=== PATIENT | female | born 1975 | race Caucasian/White ===

== ENCOUNTER 2021-07-23 19:45 | Emergency (ER) | payer OTHER, SELFPAY ==
[2021-07-23 19:46] VITALS: BP 119/75; PULSE 64; RESP 18; TEMP 36.3; O2SAT 99; BMI 20.7
[2021-07-23] MEDS: Diphth,Pertuss(Acell),Tet Vac 0.5 ML Vial IM (21:04)
--- NOTE | 2021-07-23 21:13 | EX.ED.UPPERE ---
HPI History of Present Illness Chief Complaint: Laceration Informant: patient Narrative Narrative: [id number] presents injury at work 7 PM. 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 Pushing it when it cut through the gloves on her right palm. Pain would radiate to her index finger. No paresthesias. No anticoagulation medicine. Tetanus unknown. Tetanus Immunization: Unknown PFSH PFSH Medical History Anxiety Hypothyroidism Migraines Smoker Home Medications ergocalciferol (vitamin D2) 1,250 mcg PO DAILY 07/23/21 [History Last Taken Unknown] fluoxetine 10 mg PO DAILY 07/23/21 [History Last Taken Unknown] levothyroxine 88 mcg PO DAILY 07/23/21 [History Last Taken Unknown] Allergy/AdvReac Type Severity Reaction Status Date / Time No Known Allergies Allergy Verified 07/23/21 19:49 Surgical History Hx of tonsillectomy Social History Smoking Status: Current every day smoker tobacco type: cigarettes ROS ROS ED Constitutional Constitutional ED: Denies chills, fever(s) or sweats Eyes Eyes: Denies change in vision ENT ENT ED: Denies dysphagia or sore throat Cardiovascular Cardiovascular: Denies chest pain, leg edema, palpitations or racing heartbeat Respiratory/Chest Respiratory/Chest: Denies cough, dyspnea or dyspnea on exertion Gastrointestinal Gastrointestinal: Denies abdominal pain, diarrhea, nausea or vomiting Genitourinary Genitourinary ED: Denies dysuria, hematuria or urinary frequency Musculoskeletal Musculoskeletal: Denies back pain, extremity pain or neck pain Integumentary Reports other Details: Right hand laceration ; Denies rash or wounds Neurologic Neurologic: Denies headache(s), paresthesias or weakness EXAM Physical Exam Const Vital Signs: 07/23/21 19:46 Temperature 97.4 F L Temperature Source Temporal Pulse Rate 64 Respiratory Rate 18 Blood Pressure 119/75 Blood Pressure Mean 89 Pulse Ox 99 Oxygen Delivery Method Room Air Positive well nourished and well developed General Appearance ED: well developed and NAD HEENT Reports moist mucous membranes normocephalic and atraumatic Eyes PERRL, EOMs intact bilaterally and conjunctivae normal General Eye ED: Yes normal appearance of both eyes Neck no lymphadenopathy and supple General: Negative for tenderness Chest Wall Chest: Negative for tenderness Resp normal respiratory effort and normal air movement Effort and Inspection: symmetric chest movement; Negative for respiratory distress Cardio regular rate, regular rhythm and no murmurs Peripheral Pulses: pulses 2+ throughout GI normal to inspection, nondistended, normoactive bowel sounds and non-tender Palpation: Negative for guarding or rebound tenderness present Back/Spine no CVA tenderness and no thoracic nor lumbar tenderness Extremity normal to inspection General Extremety ED: Negative for edema or tenderness General Extremity: Negative for edema Neuro oriented x3 and no sensory deficits noted Sensorium / Orientation: awake and alert Skin no wounds Skin Narrative: Right hand palmar aspect, superficial laceration to the palm distal second metacarpal very minimal subcu exposure. Full range of motion of the index finger without paresthesias. No active bleeding. MDM MDM MDM Narrative Medical decision making narrative: Superficial laceration tetanus updated. Skin was cleansed by nursing. 3 layers of Dermabond was placed for closure with good approximation. Wound care was discussed with the patient. She did not want any work restrictions. She is given follow-up with occupational health. All questions were answered. Discharge Plan Triage Chief Complaint: Laceration ED Provider: Ajay Moreno Dx/Rx/DC Orders Clinical Impression: Laceration of hand, right, Tetanus toxoid vaccination administered at current visit Instructions: ED Laceration, Extremity: Skin Glue Prescriptions: No Action levothyroxine 88 mcg Tablet 88 mcg PO DAILY RF: 0 fluoxetine 10 mg capsule 10 mg PO DAILY RF: 0 ergocalciferol (vitamin D2) 1,250 mcg (50,000 unit) capsule 1,250 mcg PO DAILY RF: 0 Primary Care Provider: Jaki Zamora Referrals: Jaki Zamora MD [Primary Care Provider] - [facility] - 3-5 Days if not improving Disposition Disposition: Home, Self Care Discharge Date/Time: 07/23/21 21:22
[2021-07-23 21:21] VITALS: BP 115/70; PULSE 74; RESP 16; O2SAT 99
== END 2021-07-23 21:22 | disposition home or self-care (01) ==
PROVIDERS: Emergency Provider Emergency Medicine; PCP Internal Medicine; Visit Provider Emergency Medicine
DX: S61.411A Laceration without foreign body of right hand, initial encounter (principal); F17.210 Nicotine dependence, cigarettes, uncomplicated; Z23 Encounter for immunization; W26.8XXA Contact with other sharp object(s), not elsewhere classified, initial encounter; Y93.89 Activity, other specified; Y99.0 Civilian activity done for income or pay; Y92.89 Other specified places as the place of occurrence of the external cause; E03.9 Hypothyroidism, unspecified; Z79.890 Hormone replacement therapy; Z79.899 Other long term (current) drug therapy; F41.9 Anxiety disorder, unspecified
CPT/HCPCS: 12041; 90471; 90715; 99282